=== PATIENT | female | born 1955 | race Caucasian/White ===

== ENCOUNTER → 2024-06-18 11:36 | Outpatient (REF) | payer OTHER, SELFPAY | LOC: RAD 11:36 | PROVIDERS: ATTENDING PHYSICIAN Hospitalist; FAMILY PHYSICIAN Family Medicine | DX: M16.12 Unilateral primary osteoarthritis, left hip (principal) | CPT/HCPCS: 73502 ==

== ENCOUNTER 2024-08-25 05:52 | Day surgery (SDC) | payer OTHER, SELFPAY ==
[2024-07-29 11:44] LABS: Hematocrit 43.5 % (37.0-47.0); Hemoglobin 14.2 g/dL (12.0-16.0); Mean Corp Hgb Conc. 32.6 g/dL (33.0-37.0); Mean Corpuscular Hgb 28.6 pg (27.0-31.0); Mean Corpuscular Volume 87.7 fL (81.0-99.0); Mean Platelet Volume 9.8 fL (7.4-10.4); Platelet Count 250 10^3/uL (130-400); Red Blood Cell Count 4.96 10^6/uL (4.20-5.40); Red Cell Dist. Width 14.4 % (11.5-14.5); White Blood Cell Count 5.6 10^3/uL (4.8-10.8)
[2024-07-29 12:06] LABS: ALT (SGPT) 25 U/L (0-35); AST (SGOT) 27 U/L (14-36); Albumin 4.4 g/dl (3.5-5.0); Alkaline Phosphatase 79 U/L (38-126); Blood Urea Nitrogen 21 mg/dl (7-17); Calcium 10.3 mg/dl (8.4-10.2); Carbon Dioxide 29 mmol/L (22-30); Chloride 104 mmol/L (98-107); Glucose 84 mg/dl (70-99); Potassium 4.1 mmol/L (3.5-5.1); Sodium 142 mmol/L (135-145); Total Protein 7.4 g/dl (6.3-8.2); eGFR > 60.00
[2024-07-29 12:51] LABS: Glycohemoglobin (HgbA1c) 5.7 % (4.0-5.6)
[2024-07-29 14:10] VITALS: BMI 32.4
[2024-08-03 12:07] VITALS: BMI 32.4
--- NOTE | 2024-08-12 14:18 | VNURNOTE ---
Patient is scheduled for an elective L GAUDENCIO on 08/25/24 - she is a same day patient with Dr Guerrero . Spoke with patient prior to surgery. Introduced role of [facility] Liaison. Patient reports that [place]
There is 1 step to enter. Bathroom and bedroom are on the same level.
She has a cane and rolling walker.
PCP is Dr Clau Rueda .
Discussed [facility] joint protocol and post surgical plans.
Reviewed that she will have VN services initially and will then start outpatient PT.
Patient selects [facility] for home care needs and will go to for outpatient PT. Scheduled for 08/30. She has 2 dogs. Pet policy reviewed.
Patient is in agreement with plan and states that hers spouse will be home with her. Advised to bring RW day of surgery. Referral placed in [facility].
Plan: [facility] V[facility] per [facility] joint protocol 08/25 then outpt PT on 08/30
[2024-08-25] VITALS (12 sets, daily range): BP systolic 122–182; BP diastolic 53–108
[2024-08-25] MEDS: CELEBREX 200 MG PO (06:57)
[2024-08-25] MEDS: TYLENOL 650 MG PO (06:57)
[2024-08-25] MEDS: NORMOSOL-R/PLASMALYTE-A 1000 IV ×2 (06:58→09:15)
--- NOTE | 2024-08-25 07:09 | W.DS.TRANS ---
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
-
Discharge Instructions:
Sleep Apnea Risk Low
Discharge Diagnosis/Procedures L GAUDENCIO 08/25/24
Diet As tolerated
Activity With Walker
Driving Restrictions No driving
Bathing Restrictions OK to Shower
Other Services PT
Instructions:
Stand-Alone Forms: SDS Total Hip and Knee D/C
Changes to Home Medications: Yes
Discharge Medications:
DC Medications w/original date entered in [facility]
cetirizine 10 mg tablet (Zyrtec) 10 mg PO HS 07/27/24
cholecalciferol (vitamin D3) 25 mcg (1,000 unit) tablet (Vitamin D3) 25 mcg PO DAILY 07/27/24
folic acid 1 mg tablet 1 mg PO DAILY 07/27/24
lisinopril 10 mg-hydrochlorothiazide 12.5 mg tablet 1 tab PO DAILY 07/27/24
methotrexate sodium 2.5 mg tablet 16 mg PO SA RA 07/27/24
rabeprazole 20 mg tablet,delayed release 20 mg PO BID 07/27/24
cefadroxil 500 mg capsule 500 mg PO BID #14 caps 07/29/24
celecoxib 200 mg capsule (Celebrex) 200 mg PO DAILY #14 caps 07/29/24
mupirocin 2 % topical ointment 1 applic intranasal BID #1 tube 07/29/24
ondansetron HCl 4 mg tablet 4 mg PO Q6H PRN nausea and vomiting #30 tabs 07/29/24
oxycodone 5 mg tablet 5 - 10 mg (1 - 2 x 5 mg) PO Q6H PRN moderate-severe pain #30 tabs 07/29/24
Saccharomyces boulardii 250 mg capsule (Florastor) 250 mg PO BID #1 cap 08/25/24
acetaminophen 325 mg tablet (Tylenol) 650 mg (2 x 325 mg) PO QID #1 tab 08/25/24
aspirin 325 mg tablet 325 mg PO DAILY blood clot prevention #1 tab 08/25/24
docusate sodium 100 mg capsule (Colace) 100 mg PO BID stool softner #1 cap 08/25/24
sennosides 8.6 mg tablet (Senokot) 8.6 mg PO BID PRN laxative-constipation #1 tab 08/25/24
Home Medication Changes
cefadroxil 500 mg capsule 500 mg PO BID #14 caps 07/29/24
celecoxib 200 mg capsule (Celebrex) 200 mg PO DAILY #14 caps 07/29/24
mupirocin 2 % topical ointment 1 applic intranasal BID #1 tube 07/29/24
ondansetron HCl 4 mg tablet 4 mg PO Q6H PRN nausea and vomiting #30 tabs 07/29/24
oxycodone 5 mg tablet 5 - 10 mg (1 - 2 x 5 mg) PO Q6H PRN moderate-severe pain #30 tabs 07/29/24
Saccharomyces boulardii 250 mg capsule (Florastor) 250 mg PO BID #1 cap 08/25/24
acetaminophen 325 mg tablet (Tylenol) 650 mg (2 x 325 mg) PO QID #1 tab 08/25/24
aspirin 325 mg tablet 325 mg PO DAILY blood clot prevention #1 tab 08/25/24
docusate sodium 100 mg capsule (Colace) 100 mg PO BID stool softner #1 cap 08/25/24
sennosides 8.6 mg tablet (Senokot) 8.6 mg PO BID PRN laxative-constipation #1 tab 08/25/24
Pending Results: No
--- NOTE | 2024-08-25 07:11 | PTCARENOTE ---
Dr Guerrero saw pt pre-op at 06:40 and pre-op orders provided at that time. Pt initially refused LJ stocking pre-op- after she spoke to her spouse, pt allowed this nurse to place LJ on non-operative leg pre-op. Pharmacy notified to profile pt's
pre-op orders stat- pt's pre-op meds profiled at 06:56 am and meds given at 06:57 am. Pt wincing in pain during admission process- pt moving very slowly during admission. Pt's spouse to bring in her walker for use in SDS post op. Report given to
[employer] and OR nurse and pt taken to OR via stretcher at 07:02 am.
[2024-08-25] MEDS: ROXICODONE 5 MG PO (11:27)
[2024-08-25] MEDS: ANCEF 5 IV (11:27)
== END 2024-08-25 12:20 | disposition home or self-care (01) ==
LOC: SDS 05:52
PROVIDERS: ATTENDING PHYSICIAN Orthopaedic Surgery; FAMILY PHYSICIAN Family Medicine; OTHER PHYSICIAN Physician Assistant
DX: M16.12 Unilateral primary osteoarthritis, left hip (principal)
CPT/HCPCS: 27130; C1713; C1776; 36415; 73502; 80053; 83036; 85027; 87070; 93005; 97163

== ENCOUNTER 2024-08-28 17:23 | Emergency (ER) | payer OTHER, SELFPAY ==
[2024-08-28 17:27] VITALS: BP 137/97
[2024-08-28 17:51] LABS: % Basophils 0.5 % (0-2); % Eosinophils 1.3 % (0-6); % Immature Granulocytes 0.6 % (0-0.5); % Lymphocytes 27.1 % (20.5-51.1); % Monocytes 5.5 % (1.7-9.3); Absolute Basophils 0.1 10^3/uL (0-0.2); Absolute Eosinophils 0.1 10^3/uL (0-0.7); Absolute Immature Granulocytes 0.1 10^3/uL (0-0.05); Absolute Lymphocytes 2.6 10^3/uL (1.2-3.4); Absolute Monocytes 0.5 10^3/uL (0.1-0.6); Absolute Neutrophils 6.2 10^3/uL (1.4-6.5); Hematocrit 37.6 % (37.0-47.0); Mean Corp Hgb Conc. 31.9 g/dL (33.0-37.0); Mean Corpuscular Hgb 28.6 pg (27.0-31.0); Mean Corpuscular Volume 89.7 fL (81.0-99.0); Mean Platelet Volume 9.4 fL (7.4-10.4); Nucleated Red Blood Cells % 0 %; Platelet Count 279 10^3/uL (130-400); Red Blood Cell Count 4.19 10^6/uL (4.20-5.40); Red Cell Dist. Width 15.1 % (11.5-14.5); White Blood Cell Count 9.6 10^3/uL (4.8-10.8)
[2024-08-28 18:04] LABS: ALT (SGPT) 25 U/L (0-35); AST (SGOT) 41 U/L (14-36); Albumin 4.5 g/dl (3.5-5.0); Alkaline Phosphatase 82 U/L (38-126); Blood Urea Nitrogen 18 mg/dl (7-17); Carbon Dioxide 25 mmol/L (22-30); Chloride 101 mmol/L (98-107); Glucose 117 mg/dl (70-99); Potassium 4.3 mmol/L (3.5-5.1); Sodium 140 mmol/L (135-145); Total Bilirubin 1.7 mg/dl (0.2-1.3); Total Protein 7.2 g/dl (6.3-8.2); eGFR > 60.00
[2024-08-28 19:07] VITALS: BMI 34.2
--- NOTE | 2024-08-28 19:35 | ED.GENMED ---
History of Present Illness
General
Chief Complaint: Wound Check/Suture Removal
Source: patient and records
Time Seen by Provider: 08/28/24 19:17
History of Present Illness
History of Present Illness:
68-year-old female with past medical history of hypertension, COPD, spinal stenosis, status post left total hip replacement done 3 days ago presenting to the emergency department after noticing blood saturated dressing overlying her left hip.
Patient was in contact with her orthopedics group who recommended she come to the ER for dressing change. Patient has a follow-up visit already scheduled for this coming Friday. She denies any other symptoms and states she feels as if she is in
her usual state of health postoperatively.
Past History
Past History
ED Past Medical History: COPD and HTN
ED Past Surgical History: Gynecological, Orthopedic and Tonsilectomy
Social History
Tobacco: Non-smoker
Alcohol: None
Drug: None
Personal:
Living: with family
Review of Systems
Review of Systems
All Other Systems: ROS reviewed and negative except as documented in HPI and ROS
Phy Exam
Physical Exam
Physical Exam:
GENERAL: Alert , in no apparent distress
EYE: conjunctiva clear
Head: Normocephalic atraumatic
NECK: Supple,
ENT: mmm.
LUNGS: no acute respiratory distress
NEUROLOGICAL: Alert and oriented
SKIN: Warm and dry, postoperative total hip dressing in place. Dried blood within the dressing but not bleeding through. Extremities otherwise warm and well
MUSCULOSKELETAL: well perfused.
PSYCH: Normal and appropriate interaction.
Scores
Heart Failure Risk
Heart Failure Risk Score: Not Applicable
Heart Score for Chest Pain Patients
STEMI patient?: Not applicable
Withdrawal Assessment of Alcohol
Withdrawal Assessment Completed?: Not applicable
Course
Orders/Labs/Results
Orders:
Orders
08/28/24 17:41
CMP [Comprehensive Metabolic Panel] Urgent
Complete Blood Count/With Diff Urgent
Abnormal Lab Results
08/28/24
17:41
RBC 4.19 L 10^6/uL
(4.20-5.40)
MCHC 31.9 L g/dL
(33.0-37.0)
RDW 15.1 H %
(11.5-14.5)
Abs Immat Gran (auto) 0.1 H 10^3/uL
(0-0.05)
Immature Gran % 0.6 H %
(0-0.5)
BUN 18 H mg/dl
(7-17)
Glucose 117 H mg/dl
(70-99)
Total Bilirubin 1.7 H mg/dl
(0.2-1.3)
AST 41 H U/L
(14-36)
08/28/24 17:41
08/28/24 17:41
Vital Signs
Initial and Last Documented VS:
Initial Vital Signs
Temp Pulse Resp BP Pulse Ox
98.4 F 110 18 137/97 98
08/28/24 17:27 08/28/24 17:27 08/28/24 17:27 08/28/24 17:27 08/28/24 17:27
Last Documented Vital Signs
Temp Pulse Resp BP Pulse Ox
98.4 F 110 18 137/97 98
08/28/24 17:27 08/28/24 17:27 08/28/24 17:27 08/28/24 17:27 08/28/24 17:27
MDM/Problems Addressed
Differential Diagnosis Includes:
Postoperative bleeding, anemia, no current signs to suggest infection
MDM/Problems Addressed:
68-year-old female presenting to the emergency department for evaluation of bleeding through postoperative dressing. Extremity is warm and well-perfused, there is no current signs of infection. I sent a picture of the postoperative dressing to
orthopedics on-call, Dr. Cortes, who agrees with plan for dressing change and that patient can then be safely discharged home and follow-up as scheduled on Friday. Patient is hemodynamically stable with a hemoglobin of 12. Patient aware of return
precautions to the ER
*Pulse Oximetry
Patient hypoxic: no
*Critical Care Note
Total Time (30-74mins, 75-104mins- exclusive of procedures): Not Applicable
Data Reviewed
Review of Other/Old Records Reveals: Records and Operative Reports
Patient Management
Discussion with other providers: [employer]
Escalation/DeEscalation of care consider admission/obs:
Patient tolerated dressing change. No active bleeding with dressing removed. Replaced with primaseal post op hip dressing. Patient stable for d/c home
ED Attending Note
-
Portions of this chart may have been created with voice recognition software.� Occasional wrong word or��sound alike� substitutions may have occurred due to the inherent limitations of voice recognition software.
Discharge Plan
Departure
Patient Disposition: Home (Routine Discharge)
Date of Disposition: 08/28/24
Time of Disposition: 19:48
Patient with high blood pressure during this ER visit?: Yes
Discharge Problem:
Dressing change
Instructions: Wound Care (DC)
Prescriptions:
No Action
rabeprazole 20 mg Tablet,Delayed Release (Dr/Ec)
20 mg PO BID
cetirizine [Zyrtec] 10 mg Tablet
10 mg PO HS
methotrexate sodium 2.5 mg Tablet
16 mg PO SA
Rx Instructions:
7.5MG BID Q SAT
folic acid 1 mg Tablet
1 mg PO DAILY
lisinopril-hydrochlorothiazide 10-12.5 mg Tablet
1 tab PO DAILY
cholecalciferol (vitamin D3) [Vitamin D3] 25 mcg (1,000 unit) Tablet
25 mcg PO DAILY
oxycodone 5 mg tablet
5 - 10 mg PO Q6H PRN (Reason: moderate-severe pain) Qty: 30 0RF
Rx Instructions:
1 tab for moderate pain, 2 if severe.
Dx total joint.
celecoxib [Celebrex] 200 mg capsule
200 mg PO DAILY Qty: 14 0RF
Rx Instructions:
Take with food.
DO NOT take within 2 hours of Aspirin post-surgery.
ondansetron HCl 4 mg tablet
4 mg PO Q6H MDD 4 PRN (Reason: nausea and vomiting) Qty: 30 0RF
mupirocin 2 % ointment
1 applic intranasal BID Qty: 1 0RF
Patient Comments:
pt started on Friday- last dose was this am.
cefadroxil 500 mg capsule
500 mg PO BID Qty: 14 0RF
Rx Instructions:
Start night of discharge and continue twice a day for 1 week post-surgery.
sennosides [Senokot] 8.6 mg tablet
8.6 mg PO BID PRN (Reason: laxative-constipation) Qty: 1 0RF
aspirin 325 mg tablet
325 mg PO DAILY Qty: 1 0RF
Rx Instructions:
Take with food
docusate sodium [Colace] 100 mg capsule
100 mg PO BID Qty: 1 0RF
Saccharomyces boulardii [Florastor] 250 mg capsule
250 mg PO BID Qty: 1 0RF
acetaminophen [Tylenol] 325 mg tablet
650 mg PO QID Qty: 1 0RF
Rx Instructions:
SCHEDULED DOSING
Referrals:
NONE,* [Family Provider] -
Interventions
Interventions:
*Risk Screen - Suicide Last Done: 08/28/24 17:27
*General Assessment Last Done: 08/28/24 17:27
*Neglect/Abuse Screening Last Done: 08/28/24 19:07
*ED- Fall Risk Assessment Last Done: 08/28/24 17:27
*ED COVID-19 Vaccine History Last Done: 08/28/24 17:27
ED-Skin Assessment Last Done: 08/28/24 19:07
Discharge Date and Time
Print Language: LIBERIAN
[2024-08-28 20:15] VITALS: BP 155/90
== END 2024-08-28 20:16 | disposition home or self-care (01) ==
LOC: EMR 17:23
PROVIDERS: EMERGENCY PHYSICIAN Student in an Organized Health Care Education/Training Program
DX: Z48.01 Encounter for change or removal of surgical wound dressing (principal); I10 Essential (primary) hypertension; J44.9 Chronic obstructive pulmonary disease, unspecified; M48.00 Spinal stenosis, site unspecified
CPT/HCPCS: 99282; 80053; 85025

== ENCOUNTER → 2024-12-27 15:27 | Outpatient (REF) | payer OTHER, SELFPAY | LOC: RAD 15:27 | PROVIDERS: ATTENDING PHYSICIAN Physician Assistant; FAMILY PHYSICIAN Family Medicine | DX: M25.559 Pain in unspecified hip (principal); M25.552 Pain in left hip | CPT/HCPCS: 73700 ==

== ENCOUNTER → 2025-01-11 15:03 | Outpatient (REF) | payer OTHER, SELFPAY ==
[2025-01-11 16:54] LABS: C-Reactive Protein < 5.00 mg/L (0.0-10.00)
== END ==
LOC: REG 15:03
PROVIDERS: ATTENDING PHYSICIAN Orthopaedic Surgery; FAMILY PHYSICIAN Family Medicine
DX: Z96.642 Presence of left artificial hip joint (principal)
CPT/HCPCS: 36415; 85652; 86140

== ENCOUNTER → 2025-04-14 09:06 | Outpatient (REF) | payer OTHER, SELFPAY | LOC: RAD 09:06 | PROVIDERS: ATTENDING PHYSICIAN Hospitalist; FAMILY PHYSICIAN Family Medicine | DX: M81.0 Age-related osteoporosis without current pathological fracture (principal) | CPT/HCPCS: 77080 ==